=== PATIENT | male | born 1955 | race Caucasian/White ===

== ENCOUNTER 2018-07-11 11:20 | Emergency (ER) | payer MEDICAID ==
[~2018-07-11] VITALS: Ht 172.7 cm; Wt 106.6 kg
--- NOTE | 2018-07-11 11:46 | ED Upper Extremity ---
General Chief Complaint: Upper Extremity Stated Complaint: SMASHED 2 FINGERS IN A CAR DOOR History of Present Illness Date Seen by Provider: Jul 11, 2018 Time Seen by Provider: 11:42 Initial Comments 63-year-old male who is index and long finger and the car door. Had small abrasions on the dorsum of the DIP joints. Had bleeding that would not stop. He is on Coumadin. No significant bone or joint pain. Has no limitations of movement. After trying to get the bleeding stopped for a couple hours he came here. No other injuries reported. However, after his arrival here, the bleeding stopped with local compression. He does not want any lab work or x-rays performed. Allergies and Home Medications Patient Home Medication List Home Medication List Reviewed: Yes Review of Systems Constitutional: no symptoms reported EENTM: no symptoms reported Respiratory: no symptoms reported Cardiovascular: no symptoms reported Gastrointestinal: no symptoms reported Genitourinary: no symptoms reported Musculoskeletal: see HPI Skin: see HPI Psychiatric/Neurological: No Symptoms Reported Past Xihgumq-Feoclt-Lqbdxr Hx Past Med/Social Hx: Reviewed Nursing Past Med/Soc Hx Patient Social History Recent Foreign Travel: No (N) Contact w/Someone Who Travel: No (N) Physical Exam Vital Signs Capillary Refill : Height, Weight, BMI Height: '" Weight: lbs. oz. kg; BMI Method: General Appearance: WD/WN, no apparent distress HEENT: PERRL/EOMI, normal ENT inspection, TMs normal, pharynx normal Neck: non-tender, full range of motion, supple, normal inspection Cardiovascular: normal peripheral pulses, regular rate, rhythm, no edema, no gallop, no JVD, no murmur Gastrointestinal: non tender Back: normal inspection Hand: non-tender, abrasions Skin: other (small abrasions on the dorsum of the long and index finger of the right hand. Bleeding when examined. Full range of motion present. No deformities noted) Progress/Results/Core Measures Progress Progress Note : Time: 11:44 Progress Note Patient declines any testing. States that since it is not bleeding he would like to leave the bandage only. He states he had a recent INR and does not want it repeated. Departure Impression Primary Impression: Finger contusion Qualified Codes: S60.021A - Contusion of right index finger without damage to nail, initial encounter Additional Impressions: Finger abrasion Qualified Codes: S60.419A - Abrasion of unspecified finger, initial encounter Anticoagulant effect Disposition: 01 HOME, SELF-CARE Condition: Stable Departure-Patient Inst. Decision time for Depature: 11:46 Referrals: DRU HOLLINGSWORTH MD (PCP/Family) Primary Care Physician as needed DRU DIETRICH MD Jul 11, 2018 11:46
[2018-07-11 11:49] VITALS: BP 193/103
== END 2018-07-11 11:49 | disposition home or self-care (01) ==
LOC: EDUNIT# 11:20 → ER FS 11:21
DX: S60.021A Contusion of right index finger without damage to nail, initial encounter (principal); Z79.01 Long term (current) use of anticoagulants; W23.1XXA Caught, crushed, jammed, or pinched between stationary objects, initial encounter
CPT/HCPCS: 99282

== ENCOUNTER 2018-07-27 10:21 | Outpatient (RCR) | payer MEDICAID ==
[2018-06-01 11:41] LABS: INR 2.7 (0.8-1.4); PROTHROMBIN TIME PATIENT 28.8 SEC (12.2-14.7)
[2018-06-29 11:40] LABS: INR 2.5 (0.8-1.4); PROTHROMBIN TIME PATIENT 26.9 SEC (12.2-14.7)
[2018-07-27 12:15] LABS: INR 2.2 (0.8-1.4); PROTHROMBIN TIME PATIENT 25.7 SEC (12.2-14.7)
[2018-08-23 10:44] LABS: INR 2.1 (0.8-1.4); PROTHROMBIN TIME PATIENT 24.8 SEC (12.2-14.7)
== END 2018-08-30 | disposition home or self-care (01) ==
LOC: LAB FS 10:21
PROVIDERS: ATTEND Pediatrics
DX: Z51.81 Encounter for therapeutic drug level monitoring (principal); Z95.2 Presence of prosthetic heart valve; Z79.01 Long term (current) use of anticoagulants
CPT/HCPCS: 36415; 85610

== ENCOUNTER 2018-12-14 10:53 | Outpatient (RCR) | payer MEDICAID ==
[2018-09-20 12:35] LABS: INR 2.9 (0.8-1.4); PROTHROMBIN TIME PATIENT 31.5 SEC (12.2-14.7)
[2018-10-18 11:54] LABS: INR 2.7 (0.8-1.4)
[2018-11-15 12:10] LABS: INR 3.4 (0.8-1.4); PROTHROMBIN TIME PATIENT 35.5 SEC (12.2-14.7)
[2018-12-14 11:33] LABS: INR 2.9 (0.8-1.4); PROTHROMBIN TIME PATIENT 31.6 SEC (12.2-14.7)
== END 2018-12-19 | disposition home or self-care (01) ==
LOC: LAB FS 10:53
PROVIDERS: ATTEND Pediatrics
DX: Z51.81 Encounter for therapeutic drug level monitoring (principal); Z95.2 Presence of prosthetic heart valve; Z79.01 Long term (current) use of anticoagulants
CPT/HCPCS: 36415; 85610

== ENCOUNTER → 2019-01-11 | Outpatient (CLI) | payer MEDICAID ==
[2019-01-11 11:23] LABS: SODIUM 142 MMOL/L (135-145)
[2019-01-11 11:24] LABS: ALANINE AMINOTRANSFERASE 16 U/L (0-55); ALBUMIN 4.1 GM/DL (3.2-4.5); ALKALINE PHOSPHATASE 64 U/L (40-136); BILIRUBIN,TOTAL 0.5 MG/DL (0.1-1.0); BUN/CREATININE RATIO 11; CALCIUM 9.7 MG/DL (8.5-10.1); CARBON DIOXIDE 25 MMOL/L (21-32); CHLORIDE 107 MMOL/L (98-107); CREATININE SERUM 1.09 MG/DL (0.60-1.30); GFR ESTIMATED > 60; GLUCOSE 129 MG/DL (70-105); TOTAL PROTEIN 7.8 GM/DL (6.4-8.2)
== END ==
LOC: LAB FS 10:32
PROVIDERS: ATTEND Pediatrics
DX: E11.42 Type 2 diabetes mellitus with diabetic polyneuropathy (principal)
CPT/HCPCS: 36415; 80053; 83036

== ENCOUNTER 2019-03-14 10:46 | Outpatient (RCR) | payer MEDICAID ==
[2019-01-11 11:25] LABS: INR 3.3 (0.8-1.4); PROTHROMBIN TIME PATIENT 34.9 SEC (12.2-14.7)
[2019-02-14 12:06] LABS: INR 2.2 (0.8-1.4); PROTHROMBIN TIME PATIENT 25.8 SEC (12.2-14.7)
[2019-03-14 12:41] LABS: INR 2.2 (0.8-1.4); PROTHROMBIN TIME PATIENT 25.2 SEC (12.2-14.7)
== END 2019-04-11 | disposition home or self-care (01) ==
LOC: LAB FS 10:46
PROVIDERS: ATTEND Pediatrics
DX: Z95.2 Presence of prosthetic heart valve (principal)
CPT/HCPCS: 36415; 85610

== ENCOUNTER 2019-06-20 10:57 | Outpatient (RCR) | payer MEDICAID ==
[2019-04-15 15:49] LABS: INR 2.6 (0.8-1.4); PROTHROMBIN TIME PATIENT 28.9 SEC (12.2-14.7)
[2019-05-23 11:10] LABS: INR 2.2 (0.8-1.4); PROTHROMBIN TIME PATIENT 25.4 SEC (12.2-14.7)
[2019-06-20 11:46] LABS: INR 2.3 (0.8-1.4); PROTHROMBIN TIME PATIENT 26.4 SEC (12.2-14.7)
== END 2019-07-14 | disposition home or self-care (01) ==
LOC: LAB FS 10:57
PROVIDERS: ATTEND Pediatrics
DX: Z01.89 Encounter for other specified special examinations (principal); Z95.2 Presence of prosthetic heart valve
CPT/HCPCS: 36415; 85610

== ENCOUNTER 2019-09-26 09:38 | Outpatient (RCR) | payer MEDICAID ==
[2019-08-01 11:54] LABS: PROTHROMBIN TIME PATIENT 38.4 SEC (12.2-14.7)
[2019-08-01 11:55] LABS: INR 3.7 (0.8-1.4)
[2019-08-29 12:46] LABS: INR 2.6 (0.8-1.4); PROTHROMBIN TIME PATIENT 28.6 SEC (12.2-14.7)
[2019-09-26 10:21] LABS: PROTHROMBIN TIME PATIENT 32.8 SEC (12.2-14.7)
[2019-09-26 10:22] LABS: INR 3.2 (0.8-1.4)
[2019-10-17 10:17] LABS: INR 3.2 (0.8-1.4); PROTHROMBIN TIME PATIENT 33.1 SEC (12.2-14.7)
== END 2019-10-30 | disposition home or self-care (01) ==
LOC: LAB FS 09:38
PROVIDERS: ATTEND Pediatrics
DX: Z01.89 Encounter for other specified special examinations (principal); Z95.2 Presence of prosthetic heart valve
CPT/HCPCS: 36415; 85610

== ENCOUNTER 2020-01-16 10:57 | Outpatient (RCR) | payer MEDICAID ==
[2019-11-15 11:56] LABS: INR 2.5 (0.8-1.4); PROTHROMBIN TIME PATIENT 26.7 SEC (12.2-14.7)
[2019-12-20 10:33] LABS: INR 3.1 (0.8-1.4)
[2020-01-16 11:19] LABS: INR 3.3 (0.8-1.4); PROTHROMBIN TIME PATIENT 33.2 SEC (12.2-14.7)
== END 2020-02-13 | disposition home or self-care (01) ==
LOC: LAB FS 10:57
PROVIDERS: ATTEND Pediatrics
DX: Z01.89 Encounter for other specified special examinations (principal); Z95.2 Presence of prosthetic heart valve
CPT/HCPCS: 36415; 85610

== ENCOUNTER 2020-02-13 09:38 | Outpatient (RCR) | payer MEDICAID ==
[2020-02-13 10:41] LABS: INR 3.4 (0.8-1.4); PROTHROMBIN TIME PATIENT 34.7 SEC (12.2-14.7)
== END 2020-05-13 | disposition home or self-care (01) ==
LOC: LAB FS 09:38
PROVIDERS: ATTEND Pediatrics
DX: Z95.2 Presence of prosthetic heart valve (principal)
CPT/HCPCS: 36415; 85610

== ENCOUNTER 2020-03-19 10:12 | Outpatient (RCR) | payer MEDICAID ==
[2020-03-19 11:04] LABS: INR 2.6 (0.8-1.4); PROTHROMBIN TIME PATIENT 27.7 SEC (12.2-14.7)
== END 2020-06-17 | disposition still patient (30) ==
LOC: LAB FS 10:12
PROVIDERS: ATTEND Pediatrics
DX: Z01.89 Encounter for other specified special examinations (principal); Z95.2 Presence of prosthetic heart valve
CPT/HCPCS: 36415; 85610

== ENCOUNTER → 2020-04-16 | Outpatient (CLI) | payer MEDICAID ==
[2020-04-16 10:59] LABS: INR 2.4 (0.8-1.4); PROTHROMBIN TIME PATIENT 26.1 SEC (12.2-14.7)
== END ==
LOC: LAB FS 10:09
PROVIDERS: ATTEND Pediatrics
DX: Z01.89 Encounter for other specified special examinations (principal); Z95.2 Presence of prosthetic heart valve
CPT/HCPCS: 36415; 85610

== ENCOUNTER 2020-05-14 09:53 | Outpatient (RCR) | payer MEDICAID ==
[2020-05-14 10:26] LABS: INR 2.6 (0.8-1.4); PROTHROMBIN TIME PATIENT 27.5 SEC (12.2-14.7)
== END 2020-08-12 | disposition home or self-care (01) ==
LOC: LAB FS 09:53
PROVIDERS: ATTEND Pediatrics
DX: Z95.2 Presence of prosthetic heart valve (principal)
CPT/HCPCS: 36415; 85610

== ENCOUNTER → 2020-06-11 | Outpatient (CLI) | payer MEDICAID | LOC: LAB FS 10:19 | PROVIDERS: ATTEND Pediatrics | DX: Z95.2 Presence of prosthetic heart valve (principal) | CPT/HCPCS: 36415; 85610 ==

== ENCOUNTER 2020-07-16 10:20 | Outpatient (RCR) | payer MEDICAID ==
[2020-07-16 11:26] LABS: INR 1.7 (0.8-1.4)
== END 2020-10-14 | disposition home or self-care (01) ==
LOC: LAB FS 10:20
PROVIDERS: ATTEND Pediatrics
DX: Z95.2 Presence of prosthetic heart valve (principal)
CPT/HCPCS: 36415; 85610

== ENCOUNTER → 2020-08-13 | Outpatient (CLI) | payer MEDICAID ==
[2020-08-13 10:27] LABS: PROTHROMBIN TIME PATIENT 30.9 SEC (12.2-14.7)
== END ==
LOC: LAB FS 09:21
PROVIDERS: ATTEND Pediatrics
DX: Z95.2 Presence of prosthetic heart valve (principal)
CPT/HCPCS: 36415; 85610

== ENCOUNTER → 2020-09-19 | Outpatient (CLI) | payer MEDICAID ==
[2020-09-19 11:42] LABS: INR 2.1 (0.8-1.4); PROTHROMBIN TIME PATIENT 24.1 SEC (12.2-14.7)
== END ==
LOC: LAB FS 10:27
PROVIDERS: ATTEND Pediatrics
DX: Z95.2 Presence of prosthetic heart valve (principal)
CPT/HCPCS: 36415; 85610

== ENCOUNTER → 2020-10-17 | Outpatient (CLI) | payer MEDICAID ==
[2020-10-17 10:58] LABS: INR 2.3 (0.8-1.4); PROTHROMBIN TIME PATIENT 25.9 SEC (12.2-14.7)
== END ==
LOC: LAB FS 10:13
PROVIDERS: ATTEND Pediatrics
DX: Z95.2 Presence of prosthetic heart valve (principal)
CPT/HCPCS: 36415; 85610

== ENCOUNTER → 2020-11-13 | Outpatient (CLI) | payer MEDICAID ==
[2020-11-13 12:08] LABS: INR 1.9 (0.8-1.4); PROTHROMBIN TIME PATIENT 21.8 SEC (12.2-14.7)
== END ==
LOC: LAB FS 10:54
PROVIDERS: ATTEND Pediatrics
DX: Z95.2 Presence of prosthetic heart valve (principal)
CPT/HCPCS: 36415; 85610

== ENCOUNTER → 2020-12-19 | Outpatient (CLI) | payer MEDICAID ==
[2020-12-19 10:47] LABS: INR 2.1 (0.8-1.4); PROTHROMBIN TIME PATIENT 23.3 SEC (12.2-14.7)
== END ==
LOC: LAB FS 09:55
PROVIDERS: ATTEND Pediatrics
DX: Z95.2 Presence of prosthetic heart valve (principal)
CPT/HCPCS: 36415; 85610

== ENCOUNTER → 2021-01-16 | Outpatient (CLI) | payer MEDICAID ==
[2021-01-16 10:58] LABS: INR 2.4 (0.8-1.4); PROTHROMBIN TIME PATIENT 26.5 SEC (12.2-14.7)
== END ==
LOC: LAB FS 10:05
PROVIDERS: ATTEND Pediatrics
DX: Z95.2 Presence of prosthetic heart valve (principal)
CPT/HCPCS: 36415; 85610

== ENCOUNTER → 2021-02-11 | Outpatient (CLI) | payer MEDICAID ==
[2021-02-11 13:16] LABS: INR 2.5 (0.8-1.4); PROTHROMBIN TIME PATIENT 27.4 SEC (12.2-14.7)
== END ==
LOC: LAB FS 10:21
PROVIDERS: ATTEND Pediatrics
DX: Z95.2 Presence of prosthetic heart valve (principal)
CPT/HCPCS: 36415; 85610

== ENCOUNTER 2021-03-13 10:18 | Outpatient (RCR) | payer MEDICAID ==
[2021-03-13 11:46] LABS: INR 2.6 (0.8-1.4); PROTHROMBIN TIME PATIENT 28.2 SEC (12.2-14.7)
== END 2021-04-12 | disposition home or self-care (01) ==
LOC: LAB FS 10:18
PROVIDERS: ATTEND Pediatrics
DX: Z95.2 Presence of prosthetic heart valve (principal)
CPT/HCPCS: 36415; 85610

== ENCOUNTER 2021-04-15 10:14 | Outpatient (RCR) | payer MEDICAID ==
[2021-04-15 10:44] LABS: INR 2.7 (0.8-1.4); PROTHROMBIN TIME PATIENT 29.5 SEC (12.2-14.7)
== END 2021-05-13 | disposition home or self-care (01) ==
LOC: LAB FS 10:14
PROVIDERS: ATTEND Pediatrics
DX: Z95.2 Presence of prosthetic heart valve (principal)
CPT/HCPCS: 36415; 85610

== ENCOUNTER 2021-05-14 09:12 | Outpatient (RCR) | payer MEDICAID ==
[2021-05-14 09:45] LABS: INR 2.4 (0.8-1.4); PROTHROMBIN TIME PATIENT 26.7 SEC (12.2-14.7)
== END 2021-06-10 | disposition home or self-care (01) ==
LOC: LAB FS 09:12
PROVIDERS: ATTEND Pediatrics
DX: Z95.2 Presence of prosthetic heart valve (principal)
CPT/HCPCS: 36415; 85610

== ENCOUNTER 2021-06-17 10:34 | Outpatient (RCR) | payer MEDICAID ==
[2021-06-17 11:01] LABS: INR 2.4 (0.8-1.4); PROTHROMBIN TIME PATIENT 26.4 SEC (12.2-14.7)
== END 2021-07-11 | disposition home or self-care (01) ==
LOC: LAB FS 10:34
PROVIDERS: ATTEND Pediatrics
DX: Z95.2 Presence of prosthetic heart valve (principal)
CPT/HCPCS: 36415; 85610

== ENCOUNTER 2021-07-16 09:22 | Outpatient (RCR) | payer MEDICAID ==
[2021-07-16 10:07] LABS: INR 2.4 (0.8-1.4); PROTHROMBIN TIME PATIENT 26.4 SEC (12.2-14.7)
== END 2021-08-10 | disposition home or self-care (01) ==
LOC: LAB FS 09:22
PROVIDERS: ATTEND Pediatrics
DX: Z95.2 Presence of prosthetic heart valve (principal)
CPT/HCPCS: 36415; 85610

== ENCOUNTER 2021-08-12 09:10 | Outpatient (RCR) | payer MEDICAID ==
[2021-08-12 14:11] LABS: INR 2.5 (0.8-1.4); PROTHROMBIN TIME PATIENT 27.1 SEC (12.2-14.7)
== END 2021-09-10 | disposition home or self-care (01) ==
LOC: LAB FS 09:10
PROVIDERS: ATTEND Pediatrics
DX: Z95.2 Presence of prosthetic heart valve (principal)
CPT/HCPCS: 36415; 85610

== ENCOUNTER → 2021-08-12 | Outpatient (CLI) | payer MEDICAID ==
[2021-08-12 10:20] LABS: ALBUMIN 4.5 GM/DL (3.2-4.5); BILIRUBIN,TOTAL 0.5 MG/DL (0.1-1.0); CALCIUM 10.5 MG/DL (8.5-10.1); CREATININE SERUM 1.14 MG/DL (0.60-1.30); POTASSIUM 4.6 MMOL/L (3.6-5.0); TOTAL PROTEIN 8.7 GM/DL (6.4-8.2)
== END ==
LOC: LAB FS 09:12
PROVIDERS: ATTEND Pediatrics
DX: Z95.2 Presence of prosthetic heart valve (principal)
CPT/HCPCS: 36415; 80053; 80061

== ENCOUNTER → 2021-09-11 | Outpatient (CLI) | payer MEDICAID ==
[2021-09-11 10:21] LABS: INR 2.4 (0.8-1.4); PROTHROMBIN TIME PATIENT 26.6 SEC (12.2-14.7)
== END ==
LOC: LAB FS 09:24
PROVIDERS: ATTEND Pediatrics
DX: Z95.2 Presence of prosthetic heart valve (principal)
CPT/HCPCS: 36415; 85610

== ENCOUNTER 2021-10-15 09:50 | Outpatient (RCR) | payer MEDICAID ==
[2021-10-15 10:32] LABS: INR 2.6 (0.8-1.4); PROTHROMBIN TIME PATIENT 28.3 SEC (12.2-14.7)
== END 2021-11-10 | disposition home or self-care (01) ==
LOC: LAB FS 09:50
PROVIDERS: ATTEND Pediatrics
DX: Z95.2 Presence of prosthetic heart valve (principal)
CPT/HCPCS: 36415; 85610

== ENCOUNTER 2021-11-11 09:20 | Outpatient (RCR) | payer MEDICAID ==
[2021-11-11 10:12] LABS: INR 3.5 (0.8-1.4)
== END 2021-12-11 | disposition home or self-care (01) ==
LOC: LAB FS 09:20
PROVIDERS: ATTEND Pediatrics
DX: Z95.2 Presence of prosthetic heart valve (principal)
CPT/HCPCS: 36415; 85610

== ENCOUNTER → 2021-11-18 | Outpatient (CLI) | payer MEDICAID ==
[2021-11-18 10:39] LABS: INR 2.3 (0.8-1.4)
== END ==
LOC: LAB FS 09:38
PROVIDERS: ATTEND Pediatrics
DX: Z95.2 Presence of prosthetic heart valve (principal)
CPT/HCPCS: 36415; 85610

== ENCOUNTER 2021-12-12 08:18 | Outpatient (RCR) | payer MEDICAID ==
[2021-12-12 09:40] LABS: INR 2.5 (0.8-1.4); PROTHROMBIN TIME PATIENT 27.3 SEC (12.2-14.7)
== END 2022-01-10 | disposition home or self-care (01) ==
LOC: LAB FS 08:18
PROVIDERS: ATTEND Pediatrics
DX: Z95.2 Presence of prosthetic heart valve (principal)
CPT/HCPCS: 36415; 85610

== ENCOUNTER 2022-01-13 09:07 | Outpatient (RCR) | payer MEDICAID ==
[2022-01-13 09:47] LABS: PROTHROMBIN TIME PATIENT 39.8 SEC (12.2-14.7)
== END 2022-02-10 | disposition home or self-care (01) ==
LOC: LAB FS 09:07
PROVIDERS: ATTEND Pediatrics
DX: Z95.2 Presence of prosthetic heart valve (principal)
CPT/HCPCS: 36415; 85610

== ENCOUNTER → 2022-02-10 | Outpatient (RCR) | payer MEDICAID ==
[2022-01-27 10:03] LABS: INR 4.5 (0.8-1.4); PROTHROMBIN TIME PATIENT 42.9 SEC (12.2-14.7)
[2022-02-10 09:26] LABS: INR 2.2 (0.8-1.4); PROTHROMBIN TIME PATIENT 24.7 SEC (12.2-14.7)
== END | disposition home or self-care (01) ==
LOC: LAB FS 01-27 09:26
PROVIDERS: ATTEND Pediatrics
DX: Z51.0 Encounter for antineoplastic radiation therapy (principal); Z79.01 Long term (current) use of anticoagulants
CPT/HCPCS: 36415; 85610

== ENCOUNTER 2022-04-08 08:58 | Outpatient (RCR) | payer MEDICAID ==
[2022-03-24 12:02] LABS: INR 1.7 (0.8-1.4); PROTHROMBIN TIME PATIENT 20.5 SEC (12.2-14.7)
[2022-04-08 09:48] LABS: INR 2.8 (0.8-1.4); PROTHROMBIN TIME PATIENT 30.1 SEC (12.2-14.7)
== END 2022-04-12 | disposition home or self-care (01) ==
LOC: LAB FS 08:58
PROVIDERS: ATTEND Pediatrics
DX: Z51.81 Encounter for therapeutic drug level monitoring (principal); Z79.01 Long term (current) use of anticoagulants
CPT/HCPCS: 36415; 85610

== ENCOUNTER → 2022-05-13 | Outpatient (CLI) | payer MEDICAID ==
[2022-05-13 08:57] LABS: PROTHROMBIN TIME PATIENT 23.1 SEC (12.2-14.7)
== END ==
LOC: LAB FS 08:01
PROVIDERS: ATTEND Pediatrics
DX: Z79.01 Long term (current) use of anticoagulants (principal)
CPT/HCPCS: 36415; 85610

== ENCOUNTER → 2022-06-11 | Outpatient (CLI) | payer MEDICARE, MEDICAID ==
[2022-06-11 11:28] LABS: PROTHROMBIN TIME PATIENT 22.8 SEC (12.2-14.7)
== END ==
LOC: LAB FS 10:39
PROVIDERS: ATTEND Pediatrics
DX: Z79.01 Long term (current) use of anticoagulants (principal)
CPT/HCPCS: 36415; 85610

== ENCOUNTER → 2022-07-14 | Outpatient (CLI) | payer MEDICARE, MEDICAID ==
[2022-07-14 10:44] LABS: INR 1.7 (0.8-1.4); PROTHROMBIN TIME PATIENT 20.4 SEC (12.2-14.7)
== END ==
LOC: LAB FS 10:08
PROVIDERS: ATTEND Pediatrics
DX: Z79.01 Long term (current) use of anticoagulants (principal)
CPT/HCPCS: 36415; 85610

== ENCOUNTER 2022-09-01 07:58 | Emergency (ER) | payer MEDICARE, MEDICAID ==
[~2022-09-01] VITALS: Ht 172.7 cm; Wt 93.4 kg
[2022-09-01] MEDS ORDERED: cefTRIAXone IV/IM 1,000 MG in NS (IVPB) 50 ML IV STA (08:16)
[2022-09-01 08:28] LABS: BASOPHILS # (AUTO) 0.1 10^3/uL (0.0-0.1); BASOPHILS % (AUTO) 0 % (0-10); EOSINOPHILS % (AUTO) 0 % (0-10); HEMATOCRIT 43 % (40-54); HEMOGLOBIN 14.6 g/dL (13.3-17.7); LYMPHOCYTES # (AUTO) 1.7 10^3/uL (1.0-4.0); LYMPHOCYTES % (AUTO) 8 % (12-44); MEAN CORPUSCULAR HEMOGLOBIN 30 pg (25-34); MEAN CORPUSCULAR HGB CONC 34 g/dL (32-36); MEAN CORPUSCULAR VOLUME 88 fL (80-99); MEAN PLATELET VOLUME 10.1 fL (9.0-12.2); MONOCYTES # (AUTO) 1.8 10^3/uL (0.0-1.0); MONOCYTES % (AUTO) 8 % (0-12); NEUTROPHILS # (AUTO) 18.8 10^3/uL (1.8-7.8); NEUTROPHILS % (AUTO) 84 % (42-75); PLATELET COUNT 277 10^3/uL (130-400); WHITE BLOOD COUNT 22.4 10^3/uL (4.3-11.0)
[2022-09-01 08:44] LABS: INR 2.7 (0.8-1.4); PROTHROMBIN TIME PATIENT 28.6 SEC (12.2-14.7)
[2022-09-01 08:59] LABS: BILIRUBIN,TOTAL 0.9 MG/DL (0.1-1.0); CALCIUM 10.4 MG/DL (8.5-10.1); CREATININE SERUM 1.21 MG/DL (0.60-1.30); POTASSIUM 4.4 MMOL/L (3.6-5.0)
[2022-09-01 09:00] LABS: TOTAL PROTEIN 8.7 GM/DL (6.4-8.2)
[2022-09-01] MEDS ORDERED: CHLO473M4 MM (09:15)
[2022-09-01] MEDS ORDERED: AMOX1TAB12 PO (09:15)
--- NOTE | 2022-09-01 09:16 | ED EENT ---
History of Present Illness General Chief Complaint: Dental Problems/Pain Stated Complaint: FACIAL SWELLING Nursing Triage Note: PT AMBULATE TO ROOM FS02 WITHOUT DIFFICULTY WITH C/O RIGHT LOWER JAW SWELLING STARTING THURSDAY. PT REPORTS SPITTING UP SMALL OF BLOOD THIS MORNING. PT DENEIS PAIN. Source: patient History of Present Illness Date Seen by Provider: September 01, 2022 Time Seen by Provider: 08:04 Initial Comments 67-year-old male presenting with complaints of increased swelling to the right side of his face and lower jaw. He states this started on Thursday. This morni ng he spit up a small amount of blood. He was concerned that he might need a vitamin K shot because he does take Coumadin due to an artificial valve. He states that he was not having pain currently. He does have some increased pressure to the side of the face with the swelling. He has spit out some purulent drainage from the infection. He denies fever, chills, cough, shortness of breath, abdominal pain. He was worried that he might need something done about his Coumadin dose since he had bleeding this morning. He states that he plans to try and follow-up through a dental clinic but felt that he needed antibiotics as well as wanted to check about his INR and Coumadin level. Timing/Duration: gradual (Since August 30) Severity: moderate Location: facial, dental Prearrival Treatment: no prearrival treatment Modifying Factors: Worse With Lying Down (Increased swelling to his face after laying down to sleep overnight) Associated Symptoms: No change in hearing, No cough, No drooling, No ear drainage; facial pain/swelling (Swelling to the right lower jaw and face); No fever, No malaise, No nasal congestion/drainage, No poor fluid intake, No poor solids intake, No sinus infection, No sore throat; tooth pain (Had some pain to the teeth initially but none currently); No voice change Allergies and Home Medications Allergies Uncoded Allergies: PENICILLIN (Adverse Reaction, Intermediate, SITE REACTION, 07/11/18) Patient Home Medication List Home Medication List Reviewed: Yes Amoxicillin/Potassium Clav (Amox Tr-K Clv 875-125 mg Tab) 875 Mg-125 Mg Tablet, 1 EACH PO BID Prescribed by: XIOMY VARELA on 09/01/22 0915 Chlorhexidine Gluconate (Peridex) 0.12 % Mouthwash, 15 ML MM BID Prescribed by: XIOMY VARELA on 09/01/22 0915 Review of Systems Review of Systems Constitutional: No chills, No fever; malaise Eyes: No Symptoms Reported Ears: No Symptoms Reported Nose: no symptoms reported Mouth: see HPI Throat: no symptoms reported Respiratory: no symptoms reported Cardiovascular: no symptoms reported Gastrointestinal: no symptoms reported Musculoskeletal: no symptoms reported Skin: no symptoms reported Neurological: No Symptoms Reported Past Ffkipcz-Wrolca-Cjvbkm Hx Patient Social History Tobacco Use?: No Use of E-Cig and/or Vaping dev: No Substance use?: No Alcohol Use?: No Seasonal Allergies Seasonal Allergies: No Past Medical History Surgeries: Yes (AORTIC VALVE AND OTHER VALVE) Tonsillectomy Respiratory: No Cardiac: Yes High Cholesterol, Hypertension, Valvular Heart Disease Neurological: Yes Genitourinary: No Gastrointestinal: No Musculoskeletal: No Endocrine: No HEENT: No Cancer: No Psychosocial: No Integumentary: No Blood Disorders: No Physical Exam Vital Signs Vital Signs - First Documented 09/01/22 09/01/22 08:32 09:20 Temp 36.0 Pulse 130 Resp 18 B/P (MAP) 143/88 (106) Pulse Ox 100 O2 Delivery Room Air Height, Weight, BMI Height: 5'8.00" Weight: 235lbs. oz. 106.907745kx; 31.00 BMI Method:Stated General Appearance: WD/WN, no apparent distress, other (Swelling to the right lower jaw and face) Eyes: bilateral eye normal inspection, bilateral eye PERRL, bilateral eye EOMI Ears: bilateral ear auricle normal, bilateral ear canal normal, bilateral ear TM normal Nose: normal inspection Mouth/Throat: pharynx normal, other (Widespread dental decay on the mandible. Swelling to the gums along the right mandible and cheek. There is inflammation and some blood oozing from around the teeth on the right jaw.) Neck: non-tender, full range of motion, supple, lymphadenopathy (R) Cardiovascular: normal peripheral pulses, tachycardia (Heart rate in the 120s to 130s and patient reports that that is his baseline and chronic for him.) Respiratory: chest non-tender, lungs clear, normal breath sounds, no respiratory distress, no accessory muscle use Gastrointestinal: normal bowel sounds, non tender, soft, no pulsatile mass Neurologic/Psychiatric: alert, oriented x 3 Skin: normal color, warm/dry Progress/Results/Core Measures Results/Orders Lab Results Laboratory Tests Test 09/01/22 08:19 Range/Units White Blood Count 22.4 H 4.3-11.0 10^3/uL Red Blood Count 4.91 4.30-5.52 10^6/uL Hemoglobin 14.6 13.3-17.7 g/dL Hematocrit 43 40-54 % Mean Corpuscular Volume 88 80-99 fL Mean Corpuscular Hemoglobin 30 25-34 pg Mean Corpuscular Hemoglobin Concent 34 32-36 g/dL Red Cell Distribution Width 12.8 10.0-14.5 % Platelet Count 277 130-400 10^3/uL Mean Platelet Volume 10.1 9.0-12.2 fL Immature Granulocyte % (Auto) 1 % Neutrophils (%) (Auto) 84 H 42-75 % Lymphocytes (%) (Auto) 8 L 12-44 % Monocytes (%) (Auto) 8 0-12 % Eosinophils (%) (Auto) 0 0-10 % Basophils (%) (Auto) 0 0-10 % Neutrophils # (Auto) 18.8 H 1.8-7.8 10^3/uL Lymphocytes # (Auto) 1.7 1.0-4.0 10^3/uL Monocytes # (Auto) 1.8 H 0.0-1.0 10^3/uL Eosinophils # (Auto) 0.0 0.0-0.3 10^3/uL Basophils # (Auto) 0.1 0.0-0.1 10^3/uL Immature Granulocyte # (Auto) 0.1 0.0-0.1 10^3/uL Neutrophils % (Manual) 74 % Lymphocytes % (Manual) 10 % Monocytes % (Manual) 7 % Eosinophils % (Manual) 1 % Band Neutrophils 8 % Platelet Estimate NORMAL Blood Morphology Comment NORMAL Prothrombin Time 28.6 H 12.2-14.7 SEC INR Comment 2.7 H 0.8-1.4 Sodium Level 136 135-145 MMOL/L Potassium Level 4.4 3.6-5.0 MMOL/L Chloride Level 98 98-107 MMOL/L Carbon Dioxide Level 24 21-32 MMOL/L Anion Gap 14 5-14 MMOL/L Blood Urea Nitrogen 12 7-18 MG/DL Creatinine 1.21 0.60-1.30 MG/DL Estimat Glomerular Filtration Rate 66 BUN/Creatinine Ratio 10 Glucose Level 326 H 70-105 MG/DL Lactic Acid Level 2.03 *H 0.50-2.00 MMOL/L Calcium Level 10.4 H 8.5-10.1 MG/DL Corrected Calcium 10.4 H 8.5-10.1 MG/DL Total Bilirubin 0.9 0.1-1.0 MG/DL Aspartate Amino Transf (AST/SGOT) 17 5-34 U/L Alanine Aminotransferase (ALT/SGPT) 16 0-55 U/L Alkaline Phosphatase 111 40-136 U/L C-Reactive Protein 17.91 H <0.50 MG/DL Total Protein 8.7 H 6.4-8.2 GM/DL Albumin 4.0 3.2-4.5 GM/DL My Orders Orders - XIOMY VARELA MD Cbc With Automated Diff (09/01/22 08:15) Comprehensive Metabolic Panel (09/01/22 08:15) Ed Iv/Invasive Line Start (09/01/22 08:15) Crp Fs (09/01/22 08:15) Protime With Inr (09/01/22 08:15) Lactic Acid Analyzer (09/01/22 08:15) Ceftriaxone Iv/Im (Rocephin Iv/Im) (09/01/22 08:16) Manual Differential (09/01/22 08:19) Vital Signs/I&O 09/01/22 09/01/22 08:32 09:20 Temp 36.0 36.2 Pulse 130 124 Resp 18 17 B/P (MAP) 143/88 (106) 137/89 Pulse Ox 100 O2 Delivery Room Air Room Air Blood Pressure Mean: 106 Progress Progress Note #1: Progress Note Potential life-threatening diagnosis of sepsis, dental abscess, facial hematoma, dental caries with abscess, coagulopathy, supratherapeutic INR. Patient reports that his heart rate is always in the 120s to 130s. He denies having a fever. His gums are showing irritation and there are some blood oozing on the right lower mandible area. He will have a peripheral IV placed and send labs for complete blood count, comprehensive metabolic profile, CRP, lactic acid. Administer ceftriaxone 1 g IV for his dental abscess and infection. Patient reported that he tolerates taking penicillins but he had been on Augmentin previously at "high doses for a long time" and had complications with that. Since he reports that he can take the Augmentin well anticipate discharg ing him on that provided were not finding sepsis or acute lab abnormalities that would require more aggressive treatment. Progress Note #2: Progress Note 0841 complete blood count and an elevated white blood cell count of 22.4 thous[address] nd with a left shift. His hemoglobin was not anemic at 14.6. His comprehensive metabolic profile showed no acute significant abnormality on his basic electrolytes other than he did have a elevated glucose to 326. Currently his INR is therapeutic at 2.7. 0905 His lactic acid was at the upper limit of normal of 2.03. His CRP was greatly elevated to 17.91 consistent with him having infection or inflammatory process. D/w Dr. Dru Maxwell, his primary care provider, and reviewed labs and patient presentation. Will having him Augmentin and he requested to have the patient get INR rechecked in 2-3 days to monitor how it is being effected with the antibiotics. Counseled patient on findings and results as well as speaking with Dr. Maxwell. Encouraged to follow-up with dental clinic for definitive care. Again reconfirmed with the patient that he could tolerate penicillin and prescribed Augmentin. I did advise him that this will cause his INR to get elevated and thin his blood more so he needs to watch this closely and Dr. Maxwell wants him to get a recheck on Thursday or of this week and go from there. Will prescribe Augmentin 875 1 p.o. twice daily x10 days for dental abscess and infection. Also prescribed Peridex 15 mL p.o. twice daily x15 days to try and help with infection and inflammation of the mouth and gums. Counseled on follow-up and return precautions if he has worsening symptoms or new findings. He might require IV antibiotics and admission to get his infection under control. Departure Impression Primary Impression: Dental abscess Additional Impressions: Dental infection Facial swelling Infected dental caries Disposition: 01 HOME, SELF-CARE Condition: Stable Departure-Patient Inst. Decision time for Depature: 09:11 Referrals: DRU MAXWELL MD (PCP) Primary Care Physician Patient Instructions: Tooth Abscess ED, Tooth Decay ED Add. Discharge Instructions: Take the full course of antibiotics to treat for facial swelling and dental abscess. Use the prescription mouthwash to help with infection and inflammation in the mouth. Have your blood redrawn on Thursday or to see what your INR is doing. The antibiotics can make the INR go too high and thin your blood too much. Today your INR was 2.7 which is in a therapeutic and good range for you. Check back with the dentist or oral surgeon as soon as possible about definitive care for your teeth. Check back with Dr. Maxwell if having worsening symptoms or not improving as you may need IV antibiotics or additional treatment for the infection. All discharge instructions reviewed with patient and/or family. Voiced understanding. Scripts Chlorhexidine Gluconate (Peridex) 0.12 % Mouthwash 15 ML MM BID for dental abscess/caries for 15 Days, #473 ML 0 Refills Swish 15 mL in mouth for at least 30 seconds, then spit it out. Do this twice a day for dental abscess/caries Prov: XIOMY VARELA MD 09/01/22 Amoxicillin/Potassium Clav (Amox Tr-K Clv 875-125 mg Tab) 875 Mg-125 Mg Tablet 1 EACH PO BID for Dental abscess for 10 Days, #20 TAB 0 Refills Prov: XIOMY VARELA MD 09/01/22 XIOMY VARELA MD September 01, 2022 09:16
[2022-09-01 09:20] VITALS: BP 137/89
[2022-09-01 09:21] LABS: BAND NEUTROPHILS 8 %; EOSINOPHILS % (MANUAL) 1 %; LYMPHOCYTES % (MANUAL) 10 %; MONOCYTES % (MANUAL) 7 %; NEUTROPHILS % (MANUAL) 74 %
[2022-09-01 09:22] LABS: PLATELET ESTIMATE NORMAL; RBC MORPH NORMAL
== END 2022-09-01 09:20 | disposition home or self-care (01) ==
LOC: EDUNIT# 07:58 → ER FS 07:59
DX: K04.7 Periapical abscess without sinus (principal); K02.9 Dental caries, unspecified; R73.9 Hyperglycemia, unspecified; Z88.0 Allergy status to penicillin
CPT/HCPCS: 36415; 80053; 83605; 85007; 85027; 85610; 86141

== ENCOUNTER 2022-09-04 09:39 | Outpatient (RCR) | payer MEDICARE, MEDICAID ==
[2022-08-13 12:45] LABS: INR 1.6 (0.8-1.4); PROTHROMBIN TIME PATIENT 19.3 SEC (12.2-14.7)
[2022-08-20 11:38] LABS: INR 1.7 (0.8-1.4); PROTHROMBIN TIME PATIENT 20.3 SEC (12.2-14.7)
[2022-08-27 11:24] LABS: PROTHROMBIN TIME PATIENT 23.5 SEC (12.2-14.7)
[~2022-09-04 09:39] MED LIST: AMOX1TAB12 PO; CHLO473M4 MM
[2022-09-04 10:20] LABS: PROTHROMBIN TIME PATIENT 31.6 SEC (12.2-14.7)
== END 2022-09-10 | disposition home or self-care (01) ==
LOC: LAB FS 09:39
PROVIDERS: ATTEND Pediatrics
DX: Z79.01 Long term (current) use of anticoagulants (principal)
CPT/HCPCS: 36415; 85610

== ENCOUNTER 2022-09-11 10:06 | Outpatient (RCR) | payer MEDICARE, MEDICAID ==
[2022-09-11 10:45] LABS: INR 2.5 (0.8-1.4); PROTHROMBIN TIME PATIENT 27.3 SEC (12.2-14.7)
== END 2022-10-10 | disposition home or self-care (01) ==
LOC: LAB FS 10:06
PROVIDERS: ATTEND Pediatrics
DX: Z51.81 Encounter for therapeutic drug level monitoring (principal); Z79.01 Long term (current) use of anticoagulants
CPT/HCPCS: 36415; 85610

== ENCOUNTER 2022-09-20 17:12 | Emergency (ER) | payer MEDICARE, MEDICAID ==
--- NOTE | 2022-09-20 17:26 | ED General ---
General Chief Complaint: Bite-Animal/Human/Insect Stated Complaint: TICK BITE Source of Information: Patient Exam Limitations: No Limitations History of Present Illness Date Seen by Provider: Sep 20, 2022 Time Seen by Provider: 17:14 Initial Comments 67-year-old male presenting after a tick bite. [place], afterwards went inside and did a skin check, found a tick on him on his right flank. He pulled the tick off and came to the emergency department. Denies any fever, chills, body aches, or any other concerns. Allergies and Home Medications Allergies Uncoded Allergies: PENICILLIN (Adverse Reaction, Intermediate, SITE REACTION, 07/11/18) Patient Home Medication List Home Medication List Reviewed: Yes Amoxicillin/Potassium Clav (Amox Tr-K Clv 875-125 mg Tab) 875 Mg-125 Mg Tablet, 1 EACH PO BID Prescribed by: XIOMY VARELA on 09/01/2215 Chlorhexidine Gluconate (Peridex) 0.12 % Mouthwash, 15 ML MM BID Prescribed by: XIOMY VARELA on 09/01/2215 Review of Systems Review of Systems Constitutional: No fever EENTM: no symptoms reported Respiratory: no symptoms reported Cardiovascular: no symptoms reported Gastrointestinal: no symptoms reported Genitourinary: no symptoms reported Musculoskeletal: no symptoms reported Past Riczihc-Ydcuvr-Pmcxvl Hx Patient Social History Substance use?: No Seasonal Allergies Seasonal Allergies: No Past Medical History Surgeries: Yes (AORTIC VALVE AND OTHER VALVE) Tonsillectomy Respiratory: No Cardiac: Yes High Cholesterol, Hypertension, Valvular Heart Disease Neurological: Yes Genitourinary: No Gastrointestinal: No Musculoskeletal: No Endocrine: No HEENT: No Cancer: No Psychosocial: No Integumentary: No Blood Disorders: No Physical Exam Vital Signs Capillary Refill : Height, Weight, BMI Height: 5'8.00" Weight: 235lbs. oz. 106.200964lg; 31.00 BMI Method:Stated General Appearance: No Apparent Distress, WD/WN HEENT: PERRL/EOMI, Normal ENT Inspection, Pharynx Normal Neck: Full Range of Motion, Normal Inspection, Non Tender, Supple Respiratory: Chest Non Tender, Lungs Clear, Normal Breath Sounds Cardiovascular: Regular Rate, Rhythm Gastrointestinal: Normal Bowel Sounds, Non Tender, Soft Skin: Normal Color, Warm/Dry, Other (Small area where the tick bit him in his right flank, no redness, no swelling, no obvious infection) Progress/Results/Core Measures Suspected Sepsis SIRS Temperature: Pulse: Respiratory Rate: Blood Pressure / Mean: Results/Orders Vital Signs/I&O Capillary Refill : Progress Note : Progress Note 67-year-old male presenting after a tick bite. ABCs were intact and vitals were stable on presentation. Physical exam with an obvious area where there was a tick bite to his right flank, but no obvious infection. This occurred shortly prior to arrival. The patient did bring the tick and I am able to identify it as an adult female [place] tick. It is not engorged. I discussed with the patient that we do not recommend empiric antibiotics. I discussed that if he develops any fever, body aches, or illness within the next couple weeks then he needs to present to his doctor. He was then discharged home in stable condition with strict return precautions Departure Impression Primary Impression: Tick bite Qualified Codes: S20.461A - Insect bite (nonvenomous) of right back wall of thorax, initial encounter; W57.XXXA - Bitten or stung by nonvenomous insect and other nonvenomous arthropods, initial encounter Disposition: HOME, SELF-CARE Condition: Stable Departure-Patient Inst. Decision time for Depature: 17:30 Referrals: DRU HOLLINGSWORTH MD (PCP) Primary Care Physician Patient Instructions: Insect Bites and Stings ED Add. Discharge Instructions: The CDC does not recommend antibiotics or any testing from a tick bite alone. You were bitten by an adult female [place] tick if a doctor in the future asks. These do not carry Lyme disease, but they do carry other things. If you develop fever, body aches, or generally get very sick within the next week or so, we would want you to be seen by your doctor right away and at that point, an tibiotics and testing would be indicated. ROSALINA SHAY MD Sep 20, 2022 17:26
[2022-09-20 17:35] VITALS: BP 179/93
== END 2022-09-20 17:35 | disposition home or self-care (01) ==
LOC: EDUNIT# 17:12 → ER FS 17:13
DX: S30.861A Insect bite (nonvenomous) of abdominal wall, initial encounter (principal); Z28.310 Unvaccinated for COVID-19; W57.XXXA Bitten or stung by nonvenomous insect and other nonvenomous arthropods, initial encounter
CPT/HCPCS: 99283

== ENCOUNTER → 2022-10-13 | Outpatient (CLI) | payer MEDICARE, MEDICAID ==
[2022-10-13 10:34] LABS: INR 2.4 (0.8-1.4); PROTHROMBIN TIME PATIENT 26.9 SEC (12.2-14.7)
== END ==
LOC: LAB FS 09:48
PROVIDERS: ATTEND Pediatrics
DX: Z79.01 Long term (current) use of anticoagulants (principal)
CPT/HCPCS: 36415; 85610

== ENCOUNTER → 2022-11-11 | Outpatient (CLI) | payer MEDICARE, MEDICAID ==
[2022-11-11 10:05] LABS: INR 1.9 (0.8-1.4)
== END ==
LOC: LAB FS 09:12
PROVIDERS: ATTEND Pediatrics
DX: Z79.01 Long term (current) use of anticoagulants (principal)
CPT/HCPCS: 36415; 85610

== ENCOUNTER → 2022-12-02 | Outpatient (CLI) | payer MEDICARE, MEDICAID ==
[2022-12-02 10:56] LABS: INR 2.6 (0.8-1.4)
== END ==
LOC: LAB FS 10:24
PROVIDERS: ATTEND Pediatrics
DX: Z79.01 Long term (current) use of anticoagulants (principal)
CPT/HCPCS: 36415; 85610

== ENCOUNTER → 2023-02-16 | Outpatient (CLI) | payer MEDICARE, MEDICAID ==
[2023-02-16 10:30] LABS: INR 2.2 (0.8-1.4); PROTHROMBIN TIME PATIENT 24.6 SEC (12.2-14.7)
== END ==
LOC: LAB FS 09:53
PROVIDERS: ATTEND Pediatrics
DX: Z79.01 Long term (current) use of anticoagulants (principal)
CPT/HCPCS: 36415; 85610

== ENCOUNTER → 2023-03-16 | Outpatient (CLI) | payer MEDICARE, MEDICAID ==
[2023-03-16 10:15] LABS: INR 1.6 (0.8-1.4); PROTHROMBIN TIME PATIENT 19.5 SEC (12.2-14.7)
== END ==
LOC: LAB FS 09:29
PROVIDERS: ATTEND Pediatrics
DX: Z79.01 Long term (current) use of anticoagulants (principal)
CPT/HCPCS: 36415; 85610